=== PATIENT | male | born 1990 | race Caucasian/White ===

== ENCOUNTER 2020-11-20 00:49 | Inpatient (IN) | payer MEDICAID, OTHER ==
[~2020-11-20] VITALS: Ht 167.6 cm; Wt 71.3 kg
[~2020-11-20 00:49] MED LIST: NOCURR
[2020-11-20 01:30] LABS: BASOPHILS % (AUTO) 0.3 % (0.0-2.0); EOSINOPHILS % (AUTO) 0.6 % (1.0-6.0); HEMATOCRIT 42.3 % (41-53); HEMOGLOBIN 14.2 g/dL (13.5-17.5); LYMPHOCYTES # (AUTO) 1.9 K/uL (1.0-4.8); LYMPHOCYTES % (AUTO) 14.4 % (22.0-44.0); MEAN CORPUSCULAR HEMOGLOBIN 31.2 pg (26.0-34.0); MEAN CORPUSCULAR HGB CONC 33.6 G/dL (31.0-37.0); MEAN CORPUSCULAR VOLUME 93 fL (80-100); NEUTROPHILS % (AUTO) 76.7 % (40.0-70.0); PLATELET COUNT (AUTO) 291 K/uL (150-450); RED BLOOD CELL COUNT(AUTO) 4.56 MIL/uL (4.50-5.90); RED CELL DISTRIBUTION WIDTH 13.5 % (11.5-14.5)
[2020-11-20 01:32] LABS: ANION GAP 11 mmol/L (8-16); CALCIUM, TOTAL 9.5 mg/dL (8.8-10.5); CARBON DIOXIDE 28 mmol/L (22-29); CHLORIDE 102 mmol/L (98-107); CREATININE 1.07 mg/dL (0.60-1.30); GLOMERULAR FILTR. RATE CALC > 60 mL/min (>60); GLUCOSE,RANDOM 104 mg/dL (70-110); POTASSIUM 4.1 mmol/L (3.5-5.1); SODIUM SERUM 141 mmol/L (136-145); UREA NITROGEN, BLOOD 29 mg/dL (7-18)
[2020-11-20 01:37] LABS: ALANINE AMINOTRANSFERASE 52 U/L (12-78); ALKALINE PHOSPHATASE 57 U/L (46-116); ASPARTATE AMINOTRANSFERASE 41 U/L (15-37); TOTAL PROTEIN, SERUM 7.9 g/dL (6.4-8.2)
[2020-11-20 02:17] LABS: COVID AG,FIA SOURCE NASOPHARYNGEAL
[2020-11-20] MEDS ORDERED: LORazepam 2 MG TABLET PO PRN ×2 (02:45→16:30)
[2020-11-20] MEDS ORDERED: HALOPERIDOL 5 MG TABLET PO PRN (02:45)
[2020-11-20] MEDS ORDERED: OLANZapine 5 MG RAPDIS TABLET PO PRN ×2 (02:45→16:30)
[2020-11-20] MEDS ORDERED: ZOLPIDEM TARTRATE 10 MG TABLET PO PRN (16:30)
[2020-11-20] MEDS ORDERED: TUBERCULIN, PURIFIED PROTEIN DERIVATIVE 5 TU/0.1 ML SYRINGE ID ONE (16:30)
[2020-11-20] MEDS ORDERED: PROMETHAZINE HCL 25 MG TABLET PO PRN (16:30)
[2020-11-20] MEDS ORDERED: GuaiFENesin/D-METHORPHAN [SUGAR-FREE] 200-20MG/10 ML SYRUP UDCUP PO PRN (16:30)
[2020-11-20] MEDS ORDERED: HydrOXYzine PAMOATE 50 MG CAPSULE PO PRN (16:30)
[2020-11-20] MEDS ORDERED: LOPERAMIDE HCL 2 MG CAPSULE PO PRN (16:30)
[2020-11-20] MEDS ORDERED: LORazepam 2 MG/ML VIAL IM ONE (18:00)
[2020-11-20] MEDS ORDERED: HALOPERIDOL LACTATE 5 MG/ML VIAL IM ONE (18:00)
[2020-11-20] MEDS ORDERED: DiphenhydrAMINE HCL 50 MG/ML VIAL IM ONE (18:00)
[2020-11-20] MEDS: MELATONIN 5 MG TABLET PO SCH (21:00)
[2020-11-20] MEDS: OLANZapine 5 MG RAPDIS TABLET PO SCH (21:00)
[2020-11-20 22:27] VITALS: BP 122/83
[2020-11-20] MEDS ORDERED: INFLUENZA VIRUS VACCINE QVS 2020-21 (6MO+)/PF 60 MCG/0.5 ML SYRINGE IM ONE (22:45)
[2020-11-21 04:21] VITALS: BP 116/72
[2020-11-21 07:51] LABS: HEMOGLOBIN A1C 4.3 % (3.8-5.6)
[2020-11-21 08:22] LABS: FREE T4 (FREE THYROXINE) 1.26 ng/dL (0.76-1.46); THYROID STIMULATING HORMONE 3.28 uIU/mL (0.36-3.74)
[2020-11-21 08:47] VITALS: BP 107/60
[2020-11-21] MEDS: MULTIVITAMINS WITH MINERALS, THERAPEUTIC TABLET PO SCH (09:15)
[2020-11-21] MEDS: NALTREXONE HCL 50 MG TABLET PO SCH (09:15)
[2020-11-21] MEDS: FOLIC ACID 1 MG TABLET PO SCH (09:15)
[2020-11-21] MEDS: FLUoxetine HCL 20 MG CAPSULE PO SCH (09:15)
[2020-11-21] MEDS: OMEGA-3/DHA/EPA/FISH OIL 1,000 MG CAPSULE PO SCH (09:15)
[2020-11-21] MEDS: THIAMINE 100 MG TABLET PO SCH ×2 (09:17→17:46)
[2020-11-21 16:24] VITALS: BP 114/70
[2020-11-21] MEDS: MELATONIN 5 MG TABLET PO SCH (20:36)
[2020-11-21] MEDS: OLANZapine 5 MG RAPDIS TABLET PO SCH (20:36)
[2020-11-21] MEDS: DIVALPROEX SODIUM 500 MG ER TABLET PO SCH (22:25)
[2020-11-22 04:22] VITALS: BP 118/76
[2020-11-22] MEDS: MULTIVITAMINS WITH MINERALS, THERAPEUTIC TABLET PO SCH (09:13)
[2020-11-22] MEDS: FOLIC ACID 1 MG TABLET PO SCH (09:13)
[2020-11-22] MEDS: NALTREXONE HCL 50 MG TABLET PO SCH (09:13)
[2020-11-22] MEDS: THIAMINE 100 MG TABLET PO SCH ×2 (09:13→16:52)
[2020-11-22] MEDS: FLUoxetine HCL 20 MG CAPSULE PO SCH (09:13)
[2020-11-22] MEDS: OMEGA-3/DHA/EPA/FISH OIL 1,000 MG CAPSULE PO SCH (09:13)
[2020-11-22 09:27] VITALS: BP 112/78
[2020-11-22 17:20] VITALS: BP 117/75
[2020-11-22] MEDS: DIVALPROEX SODIUM 500 MG ER TABLET PO SCH (21:12)
[2020-11-22] MEDS: OLANZapine 10 MG RAPDIS TABLET PO SCH (21:13)
[2020-11-22] MEDS: MELATONIN 5 MG TABLET PO SCH (21:13)
[2020-11-23 05:19] VITALS: BP 110/74
[2020-11-23 08:46] VITALS: BP 113/71
[2020-11-23] MEDS: OMEGA-3/DHA/EPA/FISH OIL 1,000 MG CAPSULE PO SCH (08:59)
[2020-11-23] MEDS: NALTREXONE HCL 50 MG TABLET PO SCH (08:59)
[2020-11-23] MEDS: MULTIVITAMINS WITH MINERALS, THERAPEUTIC TABLET PO SCH (08:59)
[2020-11-23] MEDS: FOLIC ACID 1 MG TABLET PO SCH (08:59)
[2020-11-23] MEDS: THIAMINE 100 MG TABLET PO SCH ×2 (08:59→17:06)
[2020-11-23] MEDS: FLUoxetine HCL 20 MG CAPSULE PO SCH (09:20)
[2020-11-23 17:09] VITALS: BP 103/65
[2020-11-23] MEDS: OLANZapine 10 MG RAPDIS TABLET PO SCH (21:08)
[2020-11-23] MEDS: MELATONIN 5 MG TABLET PO SCH (21:08)
[2020-11-23] MEDS: DIVALPROEX SODIUM 500 MG ER TABLET PO SCH (21:08)
[2020-11-24 06:40] VITALS: BP 110/73
[2020-11-24 08:24] VITALS: BP 127/85
[2020-11-24] MEDS ORDERED: FLUoxetine HCL 20 MG CAPSULE PO SCH (09:00)
[2020-11-24] MEDS: FLUoxetine HCL 20 MG CAPSULE PO SCH (10:12)
[2020-11-24] MEDS: MULTIVITAMINS WITH MINERALS, THERAPEUTIC TABLET PO SCH (10:12)
[2020-11-24] MEDS: OMEGA-3/DHA/EPA/FISH OIL 1,000 MG CAPSULE PO SCH (10:12)
[2020-11-24] MEDS: NALTREXONE HCL 50 MG TABLET PO SCH (10:13)
[2020-11-24] MEDS: FOLIC ACID 1 MG TABLET PO SCH (10:14)
[2020-11-24] MEDS: THIAMINE 100 MG TABLET PO SCH ×2 (10:18→16:42)
[2020-11-24 16:51] VITALS: BP 109/72
[2020-11-24] MEDS: DIVALPROEX SODIUM 500 MG ER TABLET PO SCH (20:39)
[2020-11-24] MEDS: OLANZapine 10 MG RAPDIS TABLET PO SCH (20:40)
[2020-11-24] MEDS: MELATONIN 5 MG TABLET PO SCH (20:40)
[2020-11-25 05:08] VITALS: BP 118/74
[2020-11-25 08:16] VITALS: BP 118/71
[2020-11-25] MEDS: THIAMINE 100 MG TABLET PO SCH ×2 (08:44→16:34)
[2020-11-25] MEDS: FOLIC ACID 1 MG TABLET PO SCH (08:44)
[2020-11-25] MEDS: MULTIVITAMINS WITH MINERALS, THERAPEUTIC TABLET PO SCH (08:44)
[2020-11-25] MEDS: NALTREXONE HCL 50 MG TABLET PO SCH (08:44)
[2020-11-25] MEDS: OMEGA-3/DHA/EPA/FISH OIL 1,000 MG CAPSULE PO SCH (08:44)
[2020-11-25] MEDS: FLUoxetine HCL 20 MG CAPSULE PO SCH (08:44)
[2020-11-25 17:16] VITALS: BP 115/71
[2020-11-25] MEDS: DIVALPROEX SODIUM 500 MG ER TABLET PO SCH (20:56)
[2020-11-25] MEDS: OLANZapine 10 MG RAPDIS TABLET PO SCH (20:56)
[2020-11-25] MEDS: MELATONIN 5 MG TABLET PO SCH (21:13)
[2020-11-26 06:20] VITALS: BP 149/86
[2020-11-26] MEDS: FOLIC ACID 1 MG TABLET PO SCH (08:26)
[2020-11-26] MEDS: THIAMINE 100 MG TABLET PO SCH ×2 (08:26→17:18)
[2020-11-26] MEDS: OMEGA-3/DHA/EPA/FISH OIL 1,000 MG CAPSULE PO SCH (08:26)
[2020-11-26] MEDS: MULTIVITAMINS WITH MINERALS, THERAPEUTIC TABLET PO SCH (08:27)
[2020-11-26] MEDS: NALTREXONE HCL 50 MG TABLET PO SCH (08:27)
[2020-11-26] MEDS: FLUoxetine HCL 20 MG CAPSULE PO SCH (08:27)
[2020-11-26 08:45] VITALS: BP 116/77
[2020-11-26 16:15] VITALS: BP 111/66
[2020-11-26] MEDS: DIVALPROEX SODIUM 500 MG ER TABLET PO SCH (20:42)
[2020-11-26] MEDS: OLANZapine 10 MG RAPDIS TABLET PO SCH (20:43)
[2020-11-26] MEDS: MELATONIN 5 MG TABLET PO SCH (20:43)
[2020-11-27 04:15] VITALS: BP 110/67
[2020-11-27 09:01] VITALS: BP 125/85
[2020-11-27] MEDS: MULTIVITAMINS WITH MINERALS, THERAPEUTIC TABLET PO SCH (09:38)
[2020-11-27] MEDS: FLUoxetine HCL 20 MG CAPSULE PO SCH (09:38)
[2020-11-27] MEDS: FOLIC ACID 1 MG TABLET PO SCH (09:38)
[2020-11-27] MEDS: OMEGA-3/DHA/EPA/FISH OIL 1,000 MG CAPSULE PO SCH (09:39)
[2020-11-27] MEDS: THIAMINE 100 MG TABLET PO SCH ×2 (09:40→16:35)
[2020-11-27] MEDS: NALTREXONE HCL 50 MG TABLET PO SCH (09:40)
[2020-11-27 16:21] VITALS: BP 111/64
[2020-11-27] MEDS: OLANZapine 10 MG RAPDIS TABLET PO SCH (20:39)
[2020-11-27] MEDS: MELATONIN 5 MG TABLET PO SCH (20:39)
[2020-11-27] MEDS: DIVALPROEX SODIUM 500 MG ER TABLET PO SCH (20:39)
[2020-11-28 06:32] VITALS: BP 136/59
[2020-11-28 08:35] VITALS: BP 103/70
[2020-11-28] MEDS: MULTIVITAMINS WITH MINERALS, THERAPEUTIC TABLET PO SCH (09:28)
[2020-11-28] MEDS: FLUoxetine HCL 20 MG CAPSULE PO SCH (09:28)
[2020-11-28] MEDS: FOLIC ACID 1 MG TABLET PO SCH (09:29)
[2020-11-28] MEDS: NALTREXONE HCL 50 MG TABLET PO SCH (09:29)
[2020-11-28] MEDS: THIAMINE 100 MG TABLET PO SCH ×2 (09:29→16:43)
[2020-11-28] MEDS: OMEGA-3/DHA/EPA/FISH OIL 1,000 MG CAPSULE PO SCH (09:30)
[2020-11-28 16:40] VITALS: BP 100/79
[2020-11-28] MEDS: DIVALPROEX SODIUM 500 MG ER TABLET PO SCH (20:40)
[2020-11-28] MEDS: MELATONIN 5 MG TABLET PO SCH (20:40)
[2020-11-28] MEDS: OLANZapine 10 MG RAPDIS TABLET PO SCH (20:40)
[2020-11-29 06:32] VITALS: BP 119/79
[2020-11-29 08:33] VITALS: BP 121/74
[2020-11-29] MEDS: THIAMINE 100 MG TABLET PO SCH ×2 (08:44→16:36)
[2020-11-29] MEDS: MULTIVITAMINS WITH MINERALS, THERAPEUTIC TABLET PO SCH (08:44)
[2020-11-29] MEDS: NALTREXONE HCL 50 MG TABLET PO SCH (08:44)
[2020-11-29] MEDS: FLUoxetine HCL 20 MG CAPSULE PO SCH (08:44)
[2020-11-29] MEDS: OMEGA-3/DHA/EPA/FISH OIL 1,000 MG CAPSULE PO SCH (08:44)
[2020-11-29] MEDS: FOLIC ACID 1 MG TABLET PO SCH (08:44)
[2020-11-29 17:21] VITALS: BP 104/60
[2020-11-29] MEDS: MELATONIN 5 MG TABLET PO SCH (20:26)
[2020-11-29] MEDS: OLANZapine 10 MG RAPDIS TABLET PO SCH (20:26)
[2020-11-29] MEDS: DIVALPROEX SODIUM 500 MG ER TABLET PO SCH (20:26)
[2020-11-30 03:35] VITALS: BP 116/73
[2020-11-30] MEDS: MULTIVITAMINS WITH MINERALS, THERAPEUTIC TABLET PO SCH (08:51)
[2020-11-30] MEDS: FOLIC ACID 1 MG TABLET PO SCH (08:51)
[2020-11-30] MEDS: THIAMINE 100 MG TABLET PO SCH (08:51)
[2020-11-30] MEDS: OMEGA-3/DHA/EPA/FISH OIL 1,000 MG CAPSULE PO SCH (08:51)
[2020-11-30] MEDS: FLUoxetine HCL 20 MG CAPSULE PO SCH (08:51)
[2020-11-30] MEDS: NALTREXONE HCL 50 MG TABLET PO SCH (08:51)
[2020-11-30 09:49] VITALS: BP 98/64
[2020-11-30] MEDS ORDERED: OLAN10TA22 PO (11:31)
[2020-11-30] MEDS ORDERED: DIVA-80 PO (11:31)
[2020-11-30] MEDS ORDERED: OMEG-135 PO (11:31)
[2020-11-30] MEDS ORDERED: FLUO-191 PO (11:31)
[2020-11-30] MEDS ORDERED: MELA5TAB3 PO (11:31)
[2020-11-30] MEDS ORDERED: NALT50TA PO (11:31)
== END 2020-11-30 15:00 | disposition home or self-care (01) | DRG 750 ==
LOC: EMS 00:50 → B3A 02:31
PROVIDERS: ADMIT Psychiatry & Neurology Psychiatry; ATTEND Psychiatry & Neurology Psychiatry
DX: F25.0 Schizoaffective disorder, bipolar type (principal); R45.851 Suicidal ideations; Z91.5 Personal history of self-harm; F10.20 Alcohol dependence, uncomplicated; Y90.9 Presence of alcohol in blood, level not specified; D72.829 Elevated white blood cell count, unspecified; R79.89 Other specified abnormal findings of blood chemistry; G40.509 Epileptic seizures related to external causes, not intractable, without status epilepticus; F12.10 Cannabis abuse, uncomplicated; F15.10 Other stimulant abuse, uncomplicated; Z91.19 Patient's noncompliance with other medical treatment and regimen; Z59.0 Homelessness; Z20.822 Contact with and (suspected) exposure to COVID-19; Z28.21 Immunization not carried out because of patient refusal
CPT/HCPCS: 80074; 83036; 84439; 84443; 86592; 87426; 99291; A9575; G0480; J1200; J1630; J2060

== ENCOUNTER 2025-02-01 23:05 | Inpatient (IN) | payer MEDICAID, OTHER ==
[~2025-02-01] VITALS: Ht 170.2 cm; Wt 95.0 kg
[~2025-02-01 23:05] MED LIST changes: +DIVA-153 PO; +DIVA500T69 PO; -NOCURR; +OLAN10 PO; +OLAN10TA74 PO
[2025-02-02 00:04] LABS: PH,URINE DRUG SCREEN 6.5 (5.0-8.0)
[2025-02-02 00:11] LABS: ALCOHOL, URINE DRUG SCREEN NEGATIVE (NEGATIVE); AMPHET/METH SCREEN,URINE POSITIVE (NEGATIVE); BARBITURATE SCREEN, URINE NEGATIVE (NEGATIVE); BENZODIAZEPINES SCREEN,URINE NEGATIVE (NEGATIVE); CANNABINOID SCREEN,URINE NEGATIVE (NEGATIVE); COCAINE SCREEN,URINE NEGATIVE (NEGATIVE); METHADONE SCREEN, URINE NEGATIVE (NEGATIVE); OPIATE SCREEN,URINE NEGATIVE (NEGATIVE); PHENCYCLIDINE SCREEN,URINE NEGATIVE (NEGATIVE)
[2025-02-02 01:09] LABS: COVID AG,FIA SOURCE NASAL SWAB
[2025-02-02 01:19] LABS: SARS-COV2 (COVID) ANTIGEN,FIA Negative (Negative)
[2025-02-02 01:22] LABS: BASOPHILS % (AUTO) 0.8 % (0.0-2.0); EOSINOPHILS % (AUTO) 2.5 % (1.0-6.0); HEMATOCRIT 45.1 % (41-53); HEMOGLOBIN 15.5 g/dL (13.5-17.5); LYMPHOCYTES # (AUTO) 1.7 K/uL (1.0-4.8); LYMPHOCYTES % (AUTO) 15.9 % (22.0-44.0); MEAN CORPUSCULAR HEMOGLOBIN 31.7 pg (26.0-34.0); MEAN CORPUSCULAR HGB CONC 34.3 G/dL (31.0-37.0); MEAN CORPUSCULAR VOLUME 92 fL (80-100); MONOCYTES # (AUTO) 1.4 K/uL (0.1-1.0); NEUTROPHILS # (AUTO) 7.3 K/uL (1.8-7.7); NEUTROPHILS % (AUTO) 67.8 % (40.0-70.0); PLATELET COUNT (AUTO) 199 K/uL (150-450); RED BLOOD CELL COUNT(AUTO) 4.89 MIL/uL (4.50-5.90); WHITE BLOOD COUNT (AUTO) 10.8 K/uL (4.5-11.0)
[2025-02-02 01:36] LABS: ANION GAP 9 mmol/L (8-16); CARBON DIOXIDE 27 mmol/L (22-29); CHLORIDE 105 mmol/L (98-107); CREATININE 1.02 mg/dL (0.60-1.30); GLOMERULAR FILTR. RATE CALC > 60 mL/min (>60); GLUCOSE,RANDOM 104 mg/dL (70-110); POTASSIUM 3.4 mmol/L (3.5-5.1); SODIUM SERUM 141 mmol/L (136-145); UREA NITROGEN, BLOOD 38 mg/dL (7-18)
[2025-02-02 03:16] VITALS: O2SAT 99
[2025-02-02 05:27] VITALS: BP 134/88; PULSE 94; RESP 17; TEMP 97.6; O2SAT 99
[2025-02-02] MEDS ORDERED: CloNIDine HCL 0.1 MG TABLET PO PRN (07:30)
[2025-02-02] MEDS ORDERED: PETROLATUM,WHITE 28 GM JELLY TP PRN (07:30)
[2025-02-02] MEDS ORDERED: BACITRACIN 28 GM OINTMENT TP PRN (07:30)
[2025-02-02] MEDS ORDERED: MAG HYDROX/ALUMINUM HYD/SIMETH ES 30 ML SUSPENSION UDCUP PO PRN (07:30)
[2025-02-02] MEDS ORDERED: BENZOCAINE/MENTHOL [CEPACOL] LOZENGE PO PRN (07:30)
[2025-02-02] MEDS ORDERED: DOCUSATE SODIUM 100 MG CAPSULE PO PRN (07:30)
[2025-02-02] MEDS ORDERED: ALBUTEROL SULFATE HFA 90 MCG/PUFF 8 GM INHALER IH PRN (07:30)
[2025-02-02] MEDS ORDERED: LOPERAMIDE HCL 2 MG CAPSULE PO PRN (07:30)
[2025-02-02] MEDS ORDERED: ONDANSETRON 4 MG TABLET PO PRN (07:30)
[2025-02-02] MEDS ORDERED: MAGNESIUM HYDROXIDE SUSPENSION 30 ML UDCUP PO PRN (07:30)
[2025-02-02] MEDS ORDERED: OMEPRAZOLE 20 MG CAPSULE PO PRN (07:30)
[2025-02-02 08:12] VITALS: BP 126/86; PULSE 95; RESP 18; TEMP 97.6; O2SAT 100
[2025-02-02] MEDS: POTASSIUM CHLORIDE 20 MEQ ER TABLET PO ONE (08:23)
[2025-02-02] MEDS: LORazepam 2 MG TABLET PO PRN (08:37)
[2025-02-02] MEDS: haloperidoL 5 MG TABLET PO PRN (08:38)
[2025-02-02] MEDS: RisperiDONE 3 MG TABLET PO SCH (16:45)
[2025-02-02 20:20] VITALS: BP 129/86; PULSE 96; RESP 18; TEMP 97.9; O2SAT 96
[2025-02-02] MEDS: DIVALPROEX SODIUM 500 MG ER TABLET PO SCH (20:46)
[2025-02-03 08:23] VITALS: BP 130/83; PULSE 95; RESP 17; TEMP 97.6; O2SAT 98
[2025-02-03 20:21] VITALS: BP 137/92; PULSE 105; RESP 15; TEMP 97.5; O2SAT 96
[2025-02-04 08:15] VITALS: BP 130/94; PULSE 96; RESP 18; TEMP 97.5; O2SAT 100
[2025-02-04 20:07] VITALS: BP 129/79; PULSE 98; RESP 18; TEMP 97.4; O2SAT 96
[2025-02-04] MEDS: ACETAMINOPHEN 325 MG TABLET PO PRN (21:44)
[2025-02-05 08:40] VITALS: BP 127/85; PULSE 96; RESP 18; TEMP 97.3; O2SAT 96
[2025-02-05 08:55] VITALS: RESP 18
[2025-02-05] MEDS: IBUPROFEN 600 MG TABLET PO PRN (08:55)
[2025-02-05 09:55] VITALS: RESP 17
[2025-02-05 18:44] VITALS: RESP 17
[2025-02-05 20:05] VITALS: BP 135/74; PULSE 92; RESP 18; TEMP 97.5
[2025-02-06 08:28] VITALS: BP 128/78; PULSE 93; RESP 18; TEMP 98
[2025-02-06 20:18] VITALS: BP 120/91; PULSE 92; RESP 17; TEMP 97.3
[2025-02-07 08:18] VITALS: BP 133/82; PULSE 95; RESP 17; TEMP 97.4; O2SAT 98
[2025-02-07 20:23] VITALS: BP 125/91; PULSE 92; RESP 17; TEMP 97.5; O2SAT 98
[2025-02-07] MEDS: ZOLPIDEM TARTRATE 10 MG TABLET PO PRN (22:46)
[2025-02-08 08:24] VITALS: BP 139/88; PULSE 98; RESP 16; TEMP 97.3; O2SAT 92
== END 2025-02-08 10:42 | disposition home or self-care (01) | DRG 750 ==
LOC: EMS 23:07 → B3A 02-02 03:07
PROVIDERS: ADMIT Psychiatry & Neurology Psychiatry; ATTEND Psychiatry & Neurology Psychiatry
DX: F20.9 Schizophrenia, unspecified (principal); R45.851 Suicidal ideations; Z91.148 Patient's other noncompliance with medication regimen for other reason; F41.9 Anxiety disorder, unspecified; G47.00 Insomnia, unspecified; K59.00 Constipation, unspecified; F17.210 Nicotine dependence, cigarettes, uncomplicated; Z20.822 Contact with and (suspected) exposure to COVID-19; F10.90 Alcohol use, unspecified, uncomplicated; F12.90 Cannabis use, unspecified, uncomplicated; T43.8X6A Underdosing of other psychotropic drugs, initial encounter; Y92.89 Other specified places as the place of occurrence of the external cause; Z86.73 Personal history of transient ischemic attack (TIA), and cerebral infarction without residual deficits
CPT/HCPCS: 80048; 80164; 80307; 84132; 85025; 99285; G0480